=== PATIENT | female | born 1955 | race Caucasian/White ===

== ENCOUNTER 2017-02-08 13:29 | Inpatient (IN) | payer MEDICAID, MEDICARE ==
[~2017-02-08] VITALS: Ht 160 cm; Wt 70.4 kg
[2017-02-08] MEDS ORDERED: CARV6.2512 PO (13:47)
[2017-02-08] MEDS ORDERED: SIMV20TA3 PO (13:47)
[2017-02-08] MEDS ORDERED: METF500T4 PO (13:47)
[2017-02-08] MEDS ORDERED: TRAM50TA2 PO (13:47)
[2017-02-08] MEDS ORDERED: IBUP-1223 PO (13:47)
[2017-02-08 13:59] LABS: HEMATOCRIT 42.7 % (34.6-47.8); HEMOGLOBIN 14.4 g/dL (11.7-16.4); WHITE BLOOD COUNT 8.8 x10^3/uL (3.4-10)
[2017-02-08 14:08] LABS: BLOOD UREA NITROGEN 12 mg/dL (7-18)
[2017-02-08 14:12] LABS: IS PT STATUS REG ER OR PRE ER? YES
[2017-02-08] MEDS ORDERED: POLYETHYLENE GLYCOL 17 GM PACKET PO PRN (16:30)
[2017-02-08] MEDS ORDERED: LABETALOL 5MG/ML, 20ML IVPush PRN (16:30)
[2017-02-08] MEDS ORDERED: BISACODYL 10 MG SUPP PR PRN (16:30)
[2017-02-08] MEDS ORDERED: ONDANSETRON 2MG/ML, 2ML IVPush PRN (16:30)
[2017-02-08] MEDS ORDERED: ENALAPRILAT 1.25 MG/ML, 2ML IVPush PRN (16:30)
[2017-02-08] MEDS ORDERED: ACETAMINOPHEN 325 MG TABLET PO PRN (16:30)
[2017-02-08] MEDS ORDERED: NITROGLYCERIN 0.4 MG BOTTLE (25 TABS) SL PRN (16:30)
[2017-02-08] MEDS ORDERED: DOCUSATE 100 MG CAPSULE PO PRN (16:30)
[2017-02-08] MEDS ORDERED: morphine SULFATE 10 MG/ML, 1ML IVPush PRN (16:30)
[2017-02-08] MEDS ORDERED: HYDROcodone/APAP 5/325 TABLET PO PRN (16:30)
[2017-02-08] MEDS ORDERED: GLUCAGON 1 MG IM PRN (17:00)
[2017-02-08] MEDS ORDERED: DEXTROSE 50%, 50ML SYRINGE IVPush PRN (17:00)
[2017-02-08] MEDS ORDERED: DEXTROSE 4 GM TAB.CHEW PO PRN (17:00)
[2017-02-08 17:19] VITALS: BP 138/85
[2017-02-08] MEDS ORDERED: NICOTINE 14MG/24 HR PATCH.TD24 TD SCH (18:00)
[2017-02-08] MEDS ORDERED: ENOXAPARIN 40 MG/0.4 ML SQ SCH (18:00)
[2017-02-08 18:41] LABS: IS PT STATUS REG ER OR PRE ER? NO
[2017-02-08 18:57] VITALS: BP 138/77
[2017-02-08] MEDS: CARVEDILOL 3.125 MG TABLET PO SCH (20:51)
[2017-02-08] MEDS: SODIUM CHLORIDE FLUSH 10ML SYR IVF SCH (20:53)
[2017-02-08] MEDS: INSULIN ASPART 100 UNITS/ML, PEN SQ-INSULIN SCH (20:53)
[2017-02-08] MEDS ORDERED: SIMVASTATIN 20 MG TABLET PO SCH (21:00)
[2017-02-08 22:51] LABS: IS PT STATUS REG ER OR PRE ER? NO
[2017-02-09] MEDS: SODIUM CHLORIDE 0.9% 1,000 ML IV SCH ×2 (00:19→13:59)
[2017-02-09 00:40] VITALS: BP 124/73
[2017-02-09 05:34] LABS: HEMATOCRIT 42.1 % (34.6-47.8); HEMOGLOBIN 14.3 g/dL (11.7-16.4); WHITE BLOOD COUNT 8.6 x10^3/uL (3.4-10)
[2017-02-09 05:39] LABS: BLOOD UREA NITROGEN 16 mg/dL (7-18)
[2017-02-09] MEDS ORDERED: ASPIRIN 325 MG TABLET EC PO SCH (06:00)
[2017-02-09] MEDS: INSULIN ASPART 100 UNITS/ML, PEN SQ-INSULIN SCH ×2 (07:42→10:39)
[2017-02-09 08:01] VITALS: BP 118/76
[2017-02-09] MEDS ORDERED: REGADENOSON 0.4 MG/5 ML SYRINGE ONE (08:11)
[2017-02-09] MEDS: SODIUM CHLORIDE FLUSH 10ML SYR IVF SCH (10:36)
[2017-02-09] MEDS: CARVEDILOL 3.125 MG TABLET PO SCH (10:36)
[2017-02-09] MEDS ORDERED: PNEUMOCOCCAL 23 VACCINE IM-VACC ONE (13:00)
[2017-02-09] MEDS ORDERED: FLU VACC QS2017-18 (36MOS+) UP/PF 0.5 ML IM-VACC ONE (13:00)
== END 2017-02-09 14:42 | disposition home or self-care (01) | DRG 303 ==
LOC: ED 15:38 → EDIP 15:39 → ED 16:29 → 5SO 17:21
PROVIDERS: ADMIT Hospitalist; ATTEND Hospitalist
DX: I25.10 Atherosclerotic heart disease of native coronary artery without angina pectoris (principal); E11.40 Type 2 diabetes mellitus with diabetic neuropathy, unspecified; E78.5 Hyperlipidemia, unspecified; F17.200 Nicotine dependence, unspecified, uncomplicated; I10 Essential (primary) hypertension; I25.2 Old myocardial infarction; Z79.82 Long term (current) use of aspirin; Z95.5 Presence of coronary angioplasty implant and graft; Z79.899 Other long term (current) drug therapy; Z90.89 Acquired absence of other organs; Z90.710 Acquired absence of both cervix and uterus; Z79.84 Long term (current) use of oral hypoglycemic drugs; Z72.89 Other problems related to lifestyle
CPT/HCPCS: 36415; 71010; 78452; 80048; 82040; 82962; 83735; 83880; 84484; 85025; 85610; 90686; 90732; 93005; 93017; 99285; J2785; A9502; C9898; J7030